=== PATIENT | male | born 1930 | race Caucasian/White ===

== ENCOUNTER 2018-09-12 06:39 | Emergency (ER) | payer MEDICARE ==
[2018-09-12 07:32] LABS: Bilirubin Negative (Negative); Blood, Urine Large (Negative); Clarity CLOUDY (Clear); Glucose, Urine (Dipstick) Negative (Negative); Nitrite Negative (Negative); Urobilinogen 0.2 mg/dL (0.2-1.0); pH, Urine 5.5 (5.0-9.0)
[2018-09-12 07:34] LABS: Hyaline Casts/LPF 0-3 HYALINE CAST LPF (0-3 Hyaline); Pathc Cast-AUWi Flag 0.16 (0-2.49); RBC/HPF GREATER THAN 50-TNTC HPF (0-3); Squamous Epithelial 0-3 HPF (0-3)
[2018-09-12 07:55] LABS: Leukocyte Small (Negative)
[2018-09-12 07:56] LABS: Bacteria/HPF Rare-Few HPF (None Seen); Protein, Urine (Dipstick) 100 mg/dL (Neg-Trace)
[2018-09-12 07:57] LABS: Crystals/HPF 1+ AMORPH URATES HPF (Negative)
== END 2018-09-12 08:35 | disposition home or self-care (01) ==
LOC: ERS 06:39
DX: R33.9 Retention of urine, unspecified (principal); I10 Essential (primary) hypertension; Z79.899 Other long term (current) drug therapy; Z79.82 Long term (current) use of aspirin
CPT/HCPCS: 81003; 81015; 87086; 99283